=== PATIENT | female | born 1980 | race Caucasian/White ===

== ENCOUNTER 2023-01-22 03:55 | Emergency (ER) | payer MEDICAID ==
[~2023-01-22] VITALS: Ht 162.6 cm; Wt 103.4 kg
[2023-01-22 04:24] VITALS: BP_SYST 160; PULSE 100; RESP 17; TEMP 97.9; O2SAT 98
[2023-01-22] MEDS ORDERED: VANCOMYCIN HCL 1,000 MG in NS 250 ML IV ONE (05:00)
[2023-01-22] MEDS ORDERED: VANCOMYCIN HCL 1000 MG/VIAL IV ONE (05:01)
[2023-01-22 05:32] VITALS: BP_SYST 126; PULSE 84; RESP 18; TEMP 98.4; O2SAT 98
[2023-01-22] MEDS ORDERED: SULF1TAB48 PO (06:24)
[2023-01-22] MEDS ORDERED: CHLO118L TP (06:24)
== END 2023-01-22 06:57 | disposition home or self-care (01) ==
LOC: SED 03:55
DX: L02.411 Cutaneous abscess of right axilla (principal); Z79.899 Other long term (current) drug therapy
CPT/HCPCS: 99283; 87040; 36415; J3370

== ENCOUNTER 2023-02-02 02:07 | Emergency (ER) | payer MEDICAID ==
[~2023-02-02] VITALS: Ht 162.6 cm; Wt 99.8 kg
[~2023-02-02 02:07] MED LIST: CHLO118L TP; SULF1TAB48 PO
[2023-02-02 02:25] VITALS: BP_SYST 157; PULSE 117; RESP 18; TEMP 97.1; O2SAT 98
[2023-02-02] MEDS ORDERED: NACL 0.9% 1,000 ML IV ONE (02:30)
[2023-02-02 03:51] VITALS: BP_SYST 157; PULSE 100; RESP 20; TEMP 98.9; O2SAT 98
== END 2023-02-02 03:51 | disposition home or self-care (01) ==
LOC: SED 02:07
DX: L02.415 Cutaneous abscess of right lower limb (principal); Z79.899 Other long term (current) drug therapy
CPT/HCPCS: 99283; J7120

== ENCOUNTER 2023-04-10 16:27 | Emergency (ER) | payer MEDICAID | END 2023-04-10 17:00 | disposition left against medical advice (07) | LOC: SED 16:27 | DX: R22.0 Localized swelling, mass and lump, head (principal); Z53.21 Procedure and treatment not carried out due to patient leaving prior to being seen by health care provider ==

== ENCOUNTER 2023-04-15 18:25 | Emergency (ER) | payer MEDICAID ==
[~2023-04-15] VITALS: Ht 162.6 cm; Wt 105.7 kg
[2023-04-15 18:25] VITALS: BP_SYST 169; PULSE 125; RESP 17; TEMP 97.1; O2SAT 98
== END 2023-04-15 22:35 | disposition left against medical advice (07) ==
LOC: SED 18:25
DX: T88.9XXA Complication of surgical and medical care, unspecified, initial encounter (principal); Z53.21 Procedure and treatment not carried out due to patient leaving prior to being seen by health care provider; Y82.8 Other medical devices associated with adverse incidents
CPT/HCPCS: 99281

== ENCOUNTER 2023-04-27 17:11 | Emergency (ER) | payer MEDICAID ==
[~2023-04-27] VITALS: Ht 162.6 cm; Wt 105.7 kg
[2023-04-27 17:18] VITALS: BP_SYST 136; PULSE 89; RESP 18; TEMP 98.3; O2SAT 96
[2023-04-27] MEDS ORDERED: BACITRACIN 1 GM OINT TP ONE ×2 (17:25→18:45)
[2023-04-27] MEDS ORDERED: IBUP-1969 PO (18:38)
[2023-04-27] MEDS ORDERED: TRAM50TA2 PO (18:38)
[2023-04-27 18:53] VITALS: BP_SYST 136; PULSE 89; RESP 18; TEMP 98.3; O2SAT 96
== END 2023-04-27 18:53 | disposition home or self-care (01) ==
LOC: SED 17:11
DX: S00.81XA Abrasion of other part of head, initial encounter (principal); Z79.899 Other long term (current) drug therapy; V18.0XXA Pedal cycle driver injured in noncollision transport accident in nontraffic accident, initial encounter; Y93.89 Activity, other specified; Y92.89 Other specified places as the place of occurrence of the external cause; Y99.8 Other external cause status
CPT/HCPCS: 70450-TC; 76376; 99284

== ENCOUNTER 2023-05-08 13:48 | Emergency (ER) | payer MEDICAID ==
[~2023-05-08] VITALS: Ht 162.6 cm; Wt 105.7 kg
[~2023-05-08 13:48] MED LIST changes: +IBUP-1969 PO; +TRAM50TA2 PO
[2023-05-08 14:01] VITALS: BP_SYST 153; PULSE 130; RESP 18; TEMP 99.9; O2SAT 97
[2023-05-08] MEDS ORDERED: NACL 0.9% 2,000 ML IV ONE (15:15)
[2023-05-08] MEDS ORDERED: DEXAMETHASONE SOD PHOSPHATE 10 MG/ML VIAL PO ONE (15:15)
[2023-05-08] MEDS ORDERED: KETOROLAC TROMETHAMINE 15 MG VIAL IM ONE (15:15)
[2023-05-08] MEDS ORDERED: ACETAMINOPHEN 500 MG TABLET PO ONE (15:15)
[2023-05-08] MEDS ORDERED: KETOROLAC TROMETHAMINE 15 MG VIAL IVP ONE (15:45)
[2023-05-08] MEDS ORDERED: AUG875 PO (18:31)
[2023-05-08 18:57] VITALS: BP_SYST 131; PULSE 104; RESP 20; TEMP 97; O2SAT 98
== END 2023-05-08 18:54 | disposition home or self-care (01) ==
LOC: SED 13:48
DX: J02.0 Streptococcal pharyngitis (principal); R50.9 Fever, unspecified; R11.0 Nausea; Z79.899 Other long term (current) drug therapy
CPT/HCPCS: 99283; 96374; 96361; 86403; 36415; J1100; J1885; J7030

== ENCOUNTER 2023-06-06 17:41 | Emergency (ER) | payer MEDICAID ==
[~2023-06-06 17:41] MED LIST changes: +AUG875 PO
== END 2023-06-06 18:06 | disposition left against medical advice (07) ==
LOC: SED 17:41
DX: R50.9 Fever, unspecified (principal); Z53.21 Procedure and treatment not carried out due to patient leaving prior to being seen by health care provider

== ENCOUNTER 2023-06-07 16:25 | Inpatient (IN) | payer MEDICAID ==
[~2023-06-07] VITALS: Ht 162.6 cm; Wt 98.9 kg
[2023-06-07 16:40] VITALS: BP_SYST 146; PULSE 142; RESP 20; TEMP 100.6; O2SAT 100
[2023-06-07] MEDS ORDERED: CEFEPIME 2 GM in D5W 100 ML IV ONE (17:00)
[2023-06-07] MEDS ORDERED: VANCOMYCIN HCL 1,000 MG in D5W 250 ML IV ONE (17:00)
[2023-06-07] MEDS ORDERED: NACL 0.9% 2,500 ML IV ONE (17:00)
[2023-06-07 17:19] LABS: BASOPHILS % (AUTO) 0.4 % (0.0-2.0); EOSINOPHILS % (AUTO) 0.1 % (0.0-4.0); HEMATOCRIT 40.1 % (36-48); HEMOGLOBIN 13.6 g/dL (12.0-16.0); LYMPHOCYTES # (AUTO) 0.6 K/uL (1.0-5.5); LYMPHOCYTES % (AUTO) 7.2 % (20.5-51.5); MEAN CORPUSCULAR HEMOGLOBIN 30 pg (27-31); MEAN CORPUSCULAR HGB CONC 34 % (32-36); MEAN CORPUSCULAR VOLUME 88 fL (79.0-98.0); MONOCYTES % (AUTO) 10.9 % (1.7-9.3); NEUTROPHILS # (AUTO) 7.2 K/uL (1.8-7.7); NEUTROPHILS % (AUTO) 81.4 % (40.0-70.0); PLATELET COUNT (AUTO) 356 K/uL (130-430); RED BLOOD CELL COUNT(AUTO) 4.54 MIL/uL (4.2-6.2); RED CELL DISTRIBUTION WIDTH 13.4 % (9.0-15.0); WHITE BLOOD COUNT (AUTO) 8.9 K/uL (4.8-10.8)
[2023-06-07 17:29] LABS: CALCIUM 8.5 mg/dL (8.4-11.0); CREATININE 0.79 mg/dL (0.55-1.30); POTASSIUM 4.1 mmol/L (3.5-5.1)
[2023-06-07 17:30] LABS: INR 1.1 (0.8-1.2); PROTHROMBIN TIME 11.8 SECS (9.5-12.5)
[2023-06-07] MEDS ORDERED: CEFEPIME 2 GM/VIAL (MAXIPIME) ONE (17:31)
[2023-06-07 17:34] LABS: ALBUMIN 2.6 g/dL (3.4-4.8); TOTAL BILIRUBIN 0.4 mg/dL (0.0-1.0); TOTAL PROTEIN, SERUM 7.3 g/dL (6.4-8.3)
[2023-06-07] MEDS ORDERED: ACETAMINOPHEN 500 MG TABLET PO ONE (18:00)
[2023-06-07 18:01] LABS: BILIRUBIN,URINE NEGATIVE (NEGATIVE); BLOOD, URINE 2+ (NEGATIVE); CLARITY/URINE TURBID (CLEAR); COLOR,URINE YELLOW (YELLOW); GLUCOSE,URINE 3+ (NEGATIVE); KETONES,URINE NEGATIVE (NEGATIVE); LEUKOCYTE ESTERASE ,URINE 1+ (NEGATIVE); NITRITE, URINE POSITIVE (NEGATIVE); PH,URINE 5.5 (5.0-8.0); PROTEIN URINE NEGATIVE (NEGATIVE)
[2023-06-07 18:07] LABS: BLOOD GAS PO2 98.3 mmHg (75.0-100.0)
[2023-06-07 18:10] LABS: ALLEN'S TEST POSITIVE (P); BLOOD GAS PH 7.503 (7.350-7.450)
[2023-06-07 18:36] LABS: BARBITURATE, URINE NEGATIVE (NEG <=200); BENZODIAZEPINE, URINE NEGATIVE (NEG <=150); CANNABINOID, URINE NEGATIVE (NEG <=50); COCAINE, URINE NEGATIVE (NEG <=150); METHAMPHETAMINES SCREEN,URINE POSITIVE (NEG <=500); OPIATE, URINE NEGATIVE (NEG <=100); PHENCYCLIDINE SCREEN,URINE NEGATIVE (NEG <=25); UR TRICYCLIC ANTIDEPRESSANTS NEGATIVE (NEG <=300); URINE AMPHETAMINE POSITIVE (NEG <=500); URINE METHADONE NEGATIVE (NEG <=200); URINE OXYCODONE SCREEN NEGATIVE (NEG <=100)
[2023-06-07] MEDS ORDERED: VANCOMYCIN HCL 1000 MG/VIAL IV ONE (18:44)
[2023-06-07 19:09] LABS: BACTERIA,URINE MANY /HPF (None Seen); RBC,URINE 20-50 /HPF (0-3); WBC,URINE 20-50 /HPF (0-3)
[2023-06-07] MEDS ORDERED: INSULIN REGULAR, HUMAN 100 UNITS/ML, 3 ML VIAL SUBCUT SCH (19:45)
[2023-06-07] MEDS ORDERED: DEXTROSE 50% JECT 50 ML DISP.SYRIN IVP PRN (20:15)
[2023-06-07] MEDS ORDERED: ONDANSETRON HCL 4 MG/2 ML VIAL IVP PRN (20:15)
[2023-06-07] MEDS ORDERED: POTASSIUM CHLORIDE 20 MEQ TABLET.ER PO PRN (20:15)
[2023-06-07] MEDS ORDERED: MAGNESIUM SULFATE 50 ML IV PRN (20:15)
[2023-06-07] MEDS ORDERED: ZOLPIDEM TARTRATE 5 MG TABLET PO PRN (20:15)
[2023-06-07] MEDS ORDERED: MUPIROCIN 2% TOPICAL OINTMENT 22 GM NS PRN (20:15)
[2023-06-07] MEDS ORDERED: DOCUSATE SODIUM 100 MG CAPSULE PO PRN (20:15)
[2023-06-07] MEDS ORDERED: cefTRIAXone 1 GM VIAL ONE (20:22)
[2023-06-07] MEDS ORDERED: ACETAMINOPHEN 500 MG TABLET PO PRN ×3 (20:30)
[2023-06-07 22:26] VITALS: BP_SYST 115; PULSE 93; RESP 18; TEMP 98
[2023-06-07 22:30] VITALS: BP_SYST 115; PULSE 93; RESP 16; TEMP 98; O2SAT 99
[2023-06-08] MEDS ORDERED: cefTRIAXone 1 GM IVPB PREMIX 50 ML IV ONE (00:51)
[2023-06-08] MEDS: cefTRIAXone 1 GM in D5W 50 ML IV SCH ×2 (01:12→21:20)
[2023-06-08] MEDS: NACL 0.9% 1,000 ML IV SCH ×4 (01:27→21:19)
[2023-06-08 05:52] LABS: BASOPHILS % (AUTO) 0.4 % (0.0-2.0); EOSINOPHILS % (AUTO) 0.2 % (0.0-4.0); HEMATOCRIT 38.7 % (36-48); HEMOGLOBIN 13.1 g/dL (12.0-16.0); LYMPHOCYTES # (AUTO) 0.8 K/uL (1.0-5.5); LYMPHOCYTES % (AUTO) 9.9 % (20.5-51.5); MEAN CORPUSCULAR HEMOGLOBIN 30 pg (27-31); MEAN CORPUSCULAR HGB CONC 34 % (32-36); MEAN CORPUSCULAR VOLUME 87 fL (79.0-98.0); MONOCYTES # (AUTO) 0.9 K/uL (0.0-1.0); MONOCYTES % (AUTO) 10.9 % (1.7-9.3); NEUTROPHILS # (AUTO) 6.7 K/uL (1.8-7.7); NEUTROPHILS % (AUTO) 78.6 % (40.0-70.0); PLATELET COUNT (AUTO) 332 K/uL (130-430); RED BLOOD CELL COUNT(AUTO) 4.43 MIL/uL (4.2-6.2); RED CELL DISTRIBUTION WIDTH 13.3 % (9.0-15.0); WHITE BLOOD COUNT (AUTO) 8.5 K/uL (4.8-10.8)
[2023-06-08 06:30] LABS: CALCIUM 8.4 mg/dL (8.4-11.0); CREATININE 0.61 mg/dL (0.55-1.30); POTASSIUM 3.4 mmol/L (3.5-5.1)
[2023-06-08 08:22] VITALS: BP_SYST 127; PULSE 92; RESP 16; TEMP 100.3; O2SAT 97
[2023-06-08] MEDS: INSULIN LISPRO SLIDING SCALE 100 UNITS/ML, 3 ML VIAL (humaLOG) SUBCUT PRN ×3 (12:41→21:24)
[2023-06-08 17:48] VITALS: BP_SYST 126; PULSE 78; RESP 16; TEMP 98.6; O2SAT 98
[2023-06-08 19:00] VITALS: O2SAT 95
[2023-06-08 20:00] VITALS: BP_SYST 150; PULSE 110; RESP 18; TEMP 99.1; O2SAT 95
[2023-06-09] MEDS: NACL 0.9% 1,000 ML IV SCH (06:00)
[2023-06-09 06:55] LABS: BASOPHILS % (AUTO) 0.6 % (0.0-2.0); EOSINOPHILS # (AUTO) 0.1 K/uL (0.0-0.4); EOSINOPHILS % (AUTO) 2.2 % (0.0-4.0); HEMATOCRIT 38.7 % (36-48); HEMOGLOBIN 12.9 g/dL (12.0-16.0); LYMPHOCYTES # (AUTO) 1.7 K/uL (1.0-5.5); LYMPHOCYTES % (AUTO) 32.1 % (20.5-51.5); MEAN CORPUSCULAR HEMOGLOBIN 30 pg (27-31); MEAN CORPUSCULAR HGB CONC 33 % (32-36); MEAN CORPUSCULAR VOLUME 89 fL (79.0-98.0); MONOCYTES # (AUTO) 0.9 K/uL (0.0-1.0); MONOCYTES % (AUTO) 15.8 % (1.7-9.3); NEUTROPHILS # (AUTO) 2.7 K/uL (1.8-7.7); NEUTROPHILS % (AUTO) 49.3 % (40.0-70.0); PLATELET COUNT (AUTO) 354 K/uL (130-430); RED BLOOD CELL COUNT(AUTO) 4.36 MIL/uL (4.2-6.2); RED CELL DISTRIBUTION WIDTH 13.2 % (9.0-15.0); WHITE BLOOD COUNT (AUTO) 5.4 K/uL (4.8-10.8)
[2023-06-09 07:32] LABS: CALCIUM 7.9 mg/dL (8.4-11.0); CREATININE 0.62 mg/dL (0.55-1.30); POTASSIUM 3.6 mmol/L (3.5-5.1)
[2023-06-09 08:00] VITALS: BP_SYST 140; PULSE 90; RESP 18; TEMP 98; O2SAT 99
[2023-06-09] MEDS ORDERED: METF-380 PO (08:49)
[2023-06-09] MEDS ORDERED: LEVO-62 PO (08:49)
[2023-06-09 10:41] VITALS: BP_SYST 140; PULSE 90; RESP 20; TEMP 98.2; O2SAT 99
[2023-06-09 12:00] VITALS: BP_SYST 122; PULSE 89; RESP 18; TEMP 98.2; O2SAT 99
== END 2023-06-09 11:25 | disposition home or self-care (01) | DRG 720 ==
LOC: SED 16:25 → STU 19:46 → SMU 06-08 10:00
PROVIDERS: ADMIT General Practice; ATTEND General Practice
DX: A41.9 Sepsis, unspecified organism (principal); E44.0 Moderate protein-calorie malnutrition; E87.1 Hypo-osmolality and hyponatremia; N39.0 Urinary tract infection, site not specified; F15.10 Other stimulant abuse, uncomplicated; E11.65 Type 2 diabetes mellitus with hyperglycemia; Z68.37 Body mass index [BMI] 37.0-37.9, adult
CPT/HCPCS: 36415; 36600; 71045; 80048; 80053; 80307; 81000; 81001; 81015; 82009; 82803; 82962; 83037; 83605; 83735; 84484; 85025; 85610-TC; 85730-TC; 87040; 87086; 93005; 96365; 96367; 99291; G0378; J0692; J0696; J3370; J7060